=== PATIENT | female | born 1945 | race Two or more races ===

== ENCOUNTER 2022-12-14 09:39 | Day surgery (SDC) | payer OTHER | END 2022-12-14 11:30 | disposition home or self-care (01) | LOC: AMB-ENDOS 09:39 → CIR.AMB 13:30 → AMB-ENDOS 13:30 | PROVIDERS: ATTEND Colon & Rectal Surgery | DX: Z86.010 Personal history of colon polyps (principal); R19.5 Other fecal abnormalities; K64.8 Other hemorrhoids; Z20.822 Contact with and (suspected) exposure to COVID-19 ==